=== PATIENT | female | born 1980 | race American Indian/Alaskan Native ===

== ENCOUNTER 2023-09-06 23:30 | Inpatient (IN) | payer MEDICAID, OTHER, SELFPAY ==
[2023-09-06 23:38] VITALS: BP 143/71; PULSE 120; RESP 16; TEMP 37.1; O2SAT 97; BMI 36.6
--- NOTE | 2023-09-06 23:50 | DI.RAD.S_ITS ---
PROCEDURE: XR CHEST 1V INDICATIONS: suspected sepsis TECHNIQUE: One view of the chest was acquired. COMPARISON: None. FINDINGS: Surgical changes and devices: None. Lungs and pleura: Lungs are clear. No pleural effusions or pneumothorax. Mediastinum: Mediastinal contours appear normal. Heart size is normal. Bones and chest wall: No suspicious bony lesions. Overlying soft tissues appear unremarkable. IMPRESSION: No acute cardiopulmonary pathology. Dictated by: Barney Stevenson M.D. on 09/07/2023 at 0:21 Approved by: Barney Stevenson M.D. on 09/07/2023 at 0:21
[2023-09-07] VITALS (22 sets, daily range): BP systolic 104–129; BP diastolic 55–75; PULSE 90–106; RESP 16–24; TEMP 36.1–36.2; O2SAT 94–100; BMI 36.6
[2023-09-07 00:33] LABS: Hematocrit 40.7 % (36-46); Hemoglobin 13.9 g/dL (12.0-16.0); Mean Corpuscular HGB Conc 34.2 % (30-36); Mean Corpuscular Hemoglobin 27.5 PG (26-34); Mean Corpuscular Volume 80.5 fL (80-100); Platelet Count 463 X10^3/uL (150-400); Red Blood Cell Count 5.05 X10^6/uL (4.0-5.2); White Blood Cell Count 29.2 X10^3/uL (4.5-11.0)
[2023-09-07 00:35] LABS: Add Manual Diff / Slide Review YES
[2023-09-07 00:41] LABS: INR 1.3 (0.9-1.3); Prothrombin Time 14.9 SECONDS (9.4-12.5)
[2023-09-07] MEDS: SODIUM CHLORIDE 0.9% 1,000 ML 1000 ML IV (00:43)
[2023-09-07] MEDS: cefTRIAXone 2,000 MG in SODIUM CHLORIDE 0.9% 100 ML 200 MG IV (00:43)
[2023-09-07 00:44] LABS: PTT Partial Thromboplastin Tim 37 SECONDS (25.1-36.5)
[2023-09-07 00:45] LABS: Alanine Aminotransferase 29 IU/L (<35); Albumin 4.1 g/dL (3.5-5.0); Albumin Globulin Ratio 0.9 (1.0-2.8); Alkaline Phosphatase 218 U/L (38-126); Aspartate Aminotransferase 28 IU/L (14-36); BUN Creatinine Ratio 9.4 (6-22); Bilirubin Total 0.7 mg/dL (0.2-1.3); Blood Urea Nitrogen 13 mg/dL (7-17); Carbon Dioxide 23 mmol/L (22-32); Chloride 99 mmol/L (98-107); Estimated Glomerular Filt Rate 48 mL/min (>60); Globulin 4.4 g/dL (1.7-4.1); Glucose 134 mg/dL (70-100); HEMOLYSIS < 15 (0-50); Lipase 46 U/L (23-300); Sodium 131 mmol/L (137-145); Total Protein 8.5 g/dL (6.3-8.2)
[2023-09-07 00:46] LABS: Lactate (Lactic Acid) 1.2 mmol/L (0.7-2.1)
[2023-09-07 01:01] LABS: Procalcitonin 3.01 ng/mL (<0.5)
[2023-09-07 01:13] LABS: Neutrophils Absolute Manual 24528 /uL (3000-5900); Total Cells Counted 100
[2023-09-07 01:14] LABS: Platelet Estimate Increased on smear; RBC Morphology Normal Morphology
--- NOTE | 2023-09-07 01:22 | ED.SKABFB ---
HPI - Skin/Abscess/Foreign Bdy General Chief complaint: Skin/Abscess/Foreign Body Stated complaint: spider bite left leg swollen Time Seen by Provider: 09/07/23 00:37 Source: patient Mode of arrival: Ambulatory Limitations: no limitations History of Present Illness HPI narrative: 42-year-old female with history of opiate use disorder, previously on Suboxone but recently relapsed after the family member presents by private vehicle from home for approximately 5-6 days of gradually worsening left lower leg redness and pain. Patient states that she felt like she was bit by something on her outer left leg but brushed it off. Patient noticed some redness to her lower leg the next day, and it spread from her outer left leg all the way up to her knee. Her leg is painful, swollen. Seeing how bad the swelling has gotten she decided to present for evaluation. Last tetanus shot unknown, but she states that she was told that if ?anything happens? she would need a tetanus update. Related Data Home Medications Medication Instructions Recorded Confirmed albuterol sulfate 2.5 mg/3 mL 3 ml INH PRN ##0 11/25/10 (0.083 %) solution for nebulization ACETAMINOPHEN 650 mg PO Q4H ##0 06/29/11 VIT#96/FERROUS FUM/FA 1 tab PO Q DAY ##0 06/29/11 ( Tablet) Allergies Allergy/AdvReac Type Severity Reaction Status Date / Time codeine Allergy Hives Verified 09/06/23 23:35 Review of Systems Review of Systems Narrative: Negative except as noted above Patient History Social History Smoking Status: Current some day smoker Smoking Status: Current some day smoker Substance Use Type: opiates Exam Initial Vital Signs Initial Vital Signs: Vital Signs Temperature 98.7 F 09/06/23 23:38 Pulse Rate 120 H 09/06/23 23:38 Respiratory Rate 16 09/06/23 23:38 Blood Pressure 143/71 H 09/06/23 23:38 Pulse Oximetry 97 09/06/23 23:38 Oxygen Delivery Method Room Air 09/06/23 23:38 Const: Awake, alert, no acute distress Cardiac: Tachycardia, regular rhythm RESP: unlabored, clear bilaterally, no wheezing GI: Atraumatic, soft, nontender, nondistended, no rebound, no guarding MSK: Small excoriation outer left lower extremity, compartments soft, full range of motion, 2+ DP pulses bilaterally Skin: Warm, Dry, excoriation lateral left lower extremity. Erythema extending from ankle to just past knee Neuro: AO x3, CN II-XII grossly intact, moves all extremities Course Orders Ordered: ED Orders 09/06/23 23:50 XR chest 1V Stat EKG-12 Lead Stat RT Consult Eval and Treat NOW 09/07/23 02:39 XR tibia fibula LT 2V Stat Discontinued Medications Diphtheria/Tetanus/Acell Pertussis (Tet,Diph,Pertuss(Acell),Vac/Pf 0.5 Ml Syringe) 0.5 ml IM .ONCE ONE Stop: 09/07/23 01:22 Last Admin: 09/07/23 01:26 Dose: 0.5 ml Documented By: KAYLEE Sodium Chloride (Normal Saline 0.9%) 1,000 mls @ 1,000 mls/hr IV BOLUS ONE Stop: 09/07/23 00:48 Last Infusion: 09/07/23 01:43 Dose: Infused Documented By: Admin: 09/07/23 00:43 Dose: 1,000 mls/hr Documented By: JIMI Vancomycin HCl (Vancomycin) 1,000 mg in 200 mls @ 200 mls/hr IV NOW ONE Stop: 09/07/23 00:58 Last Infusion: 09/07/23 02:25 Dose: Infused Documented By: Admin: 09/07/23 01:25 Dose: 200 mls/hr Documented By: KAYLEE Ceftriaxone Sodium 2,000 mg/ (Sodium Chloride) 100 mls @ 200 mls/hr IV NOW ONE Stop: 09/07/23 00:00 Last Infusion: 09/07/23 01:22 Dose: Infused Documented By: Admin: 09/07/23 00:43 Dose: 200 mls/hr Documented By: JIMI Vital Signs Vital signs: Vital Signs - 8 hr 09/06/23 23:38 09/07/23 01:02 09/07/23 01:02 Temperature 98.7 F Pulse Rate 120 H 101 H Respiratory Rate 16 18 Blood Pressure 143/71 H 125/75 Pulse Oximetry 97 98 Oxygen Delivery Method Room Air 09/07/23 01:30 09/07/23 02:00 09/07/23 02:30 Temperature Pulse Rate 97 H 103 H 103 H Respiratory Rate 18 16 Blood Pressure 113/63 Pulse Oximetry 100 100 97 Oxygen Delivery Method Room Air 09/07/23 02:41 09/07/23 02:44 Temperature Pulse Rate 106 H 103 H Respiratory Rate 19 Blood Pressure Pulse Oximetry 98 Oxygen Delivery Method MDM - Skin/Abscess/Foreign Bdy Differential Diagnosis Differential diagnosis: Likely abscess of skin or subcutaneous tissue, viral exanthem and dermatophytosis Lab Data 09/06/23 00:15 09/06/23 00:15 Labs: Lab Results 09/06/23 Range/Units 00:15 WBC 29.2 H (4.5-11.0) X10^3/uL RBC 5.05 (4.0-5.2) X10^6/uL Hgb 13.9 (12.0-16.0) g/dL Hct 40.7 (36-46) % MCV 80.5 (80-100) fL MCH 27.5 (26-34) PG MCHC 34.2 (30-36) % RDW 15.0 H (11.6-14.8) % Plt Count 463 H (150-400) X10^3/uL Neut % (Auto) Not Reportable Lymph % (Auto) Not Reportable [place] % (Auto) Not Reportable Eos % (Auto) Not Reportable Baso % (Auto) Not Reportable Lymph # (Auto) Not Reportable [place] # (Auto) Not Reportable Baso # (Auto) Not Reportable Total Counted 100 Seg Neutrophils % 74.0 H (38-70) % Band Neutrophils % 10.0 H (3-7) % Lymphocytes % (Manual) 13.0 L (25-45) % Monocytes % (Manual) 2.0 (2-11) % Eosinophils % (Manual) 1.0 L (2-4) % Neutrophils # (Manual) 57568 H (2771-2529) /uL Platelet Estimate Increased on smear RBC Morphology Normal morphology PT 14.9 H (9.4-12.5) SECONDS INR 1.3 (0.9-1.3) APTT 37 H (25.1-36.5) SECONDS Sodium 131 L (137-145) mmol/L Potassium 3.0 L (3.4-5.1) mmol/L Chloride 99 (98-107) mmol/L Carbon Dioxide 23 (22-32) mmol/L BUN 13 (7-17) mg/dL Creatinine 1.39 H (0.52-1.04) mg/dL Estimated GFR 48 L (>60) mL/min BUN/Creatinine Ratio 9.4 (6-22) Glucose 134 H (70-100) mg/dL Lactate 1.2 (0.7-2.1) mmol/L Calcium 9.0 (8.4-10.2) mg/dL Total Bilirubin 0.7 (0.2-1.3) mg/dL AST 28 (14-36) IU/L ALT 29 (<35) IU/L Alkaline Phosphatase 218 H (38-126) U/L Total Protein 8.5 H (6.3-8.2) g/dL Albumin 4.1 (3.5-5.0) g/dL Globulin 4.4 H (1.7-4.1) g/dL Albumin/Globulin Ratio 0.9 L (1.0-2.8) Lipase 46 (23-300) U/L Procalcitonin 3.01 H (<0.5) ng/mL Point of Care Testing Test Results Negative Urine Dip Bedside Urine Glucose Negative Bedside Urine Bilirubin + 1 Bedside Urine Ketone +/- 5 Urine Specific [place] 1.03 Bedside Urine Occult Blood +/- Bedside Urine pH 5.5 Bedside Urine Protein + 30 Bedside Urine Urobilinogen - Negative Bedside Urine Nitrite - Negative Bedside Urine Leukocytes +/- 15 Esterase MDM Narrative Medical decision making narrative: Extensive cellulitis of left lower extremity presumably after insect bite. Compartments are soft, there is no crepitus, however based on the extent as well as duration of symptoms as well as abnormal vital signs concerns for sepsis. Blood cultures ordered, vancomycin and Rocephin ordered for coverage. Laboratory work is reviewed. Significant for WBC count 29, sodium 131, potassium 3.0, creatinine 1.39, procalcitonin 3.01. No previous lab results for comparison. X-ray of tibia and fibula shows no gas, but extensive soft tissue swelling is appreciable on x-ray. Based on the extent of cellulitis plan to admit patient for IV antibiotics and further treatment. Discharge Plan Departure Patient Disposition: Admitted As Inpatient Clinical Impression: Use of nonprescription opiate drugs Cellulitis Qualifiers: Site of cellulitis: extremity Site of cellulitis of extremity: lower extremity Laterality: left Qualified Code(s): L03.116 - Cellulitis of left lower limb Admit Date/Time: 09/07/23 02:55 Admit Provider: Remi Sanchez
[2023-09-07] MEDS: VANCOMYCIN 1,000 MG/200 ML PIGGYBACK 200 MG IV (01:25)
[2023-09-07] MEDS: TET,DIPH,PERTUSS(ACELL),VAC/PF 0.5 ML SYRINGE IM (01:26)
--- NOTE | 2023-09-07 02:39 | DI.RAD.S_ITS ---
PROCEDURE: XR TIBIA FIBULA LT 2V INDICATIONS: LLE CELLULITIS/SWELLING TECHNIQUE: 2 views of the tibia and fibula were acquired. COMPARISON: None. FINDINGS: Bones: No acute fractures or dislocations. No suspicious bony lesions. Soft tissues: Nonspecific soft tissue edema is seen throughout the lower leg. IMPRESSION: Nonspecific soft tissue edema. No acute osseous abnormality. If there is continued clinical concern or persistent symptoms, repeat radiographs or cross-sectional imaging (e.g. CT, MRI) may be helpful for further evaluation. There is no significant discrepancy when compared to the overnight preliminary report. Approved by: Tomás Starr M.D. on 09/07/2023 at 7:43
--- NOTE | 2023-09-07 06:12 | DI.US.S_ITS ---
PROCEDURE: US PERIPH VENOUS LOW EXTREM BI INDICATIONS: PAIN AND EDEMA TECHNIQUE: Real-time imaging, as well as color and pulse Doppler interrogation, were performed of the deep veins of both legs from the inguinal ligament to the popliteal fossa, with documentation of the visualized calf veins. COMPARISON: None. FINDINGS: Right: The common femoral, femoral, popliteal, and the visualized calf veins are normally compressible, and free of intraluminal thrombus. Color and pulse Doppler demonstrate normal phasic intravascular flow. There is normal augmentation response to distal compression maneuver. Left: The common femoral, femoral, popliteal, and the visualized calf veins are normally compressible, and free of intraluminal thrombus. Color and pulse Doppler demonstrate normal phasic intravascular flow. There is normal augmentation response to distal compression maneuver. IMPRESSION: No findings of deep venous thrombosis in either lower extremity. Dictated by: Keri Pate M.D. on 09/07/2023 at 8:03 Approved by: Keri Pate M.D. on 09/07/2023 at 8:03
--- NOTE | 2023-09-07 06:13 | ED.SKABFB ---
HPI - Skin/Abscess/Foreign Bdy General Chief complaint: Skin/Abscess/Foreign Body Stated complaint: spider bite left leg swollen Time Seen by Provider: 09/07/23 00:37 Source: patient Mode of arrival: Ambulatory Limitations: no limitations History of Present Illness HPI narrative: 42 years old female with apparent no medical issues and not seen a physician and currently not on prescription medications but on Percocet that is being procured without a prescription presents to the emergency room for worsening pain redness and swelling of the left lower extremity that started about 5 to 6 days ago. Reports that she may have felt bite-like sensation but could not find any insects while at home and rested off few days ago. Started off as a small red blister in the calf on the left leg that spread to the leg up to the knee and to the ankle. No recent trauma and does not work outside/inadvertent exposure or scrapes to the skin. No pets at home. Does have eczema and may also have scratched her legs unknowingly. Now developed significant pain with erythema extending to most of the leg on the left side. Noted to be tachycardic in the emergency room and labs revealed a white count of 29.2. Hemoglobin of 13.9, potassium of 6.0 with a creatinine of 1.39. Patient was initiated on IV Rocephin/vancomycin for likely cellulitis of the left lower extremity and admitted for further evaluation Related Data Allergies Allergy/AdvReac Type Severity Reaction Status Date / Time codeine Allergy Hives Verified 09/06/23 23:35 Review of Systems Review of Systems Narrative: A 12 point review of system is negative unless otherwise stated in history of present illness Patient History Social History Smoking Status: Current some day smoker Smoking Status: Current some day smoker Substance Use Type: opiates Exam Initial Vital Signs Initial Vital Signs: Vital Signs Temperature 98.7 F 09/06/23 23:38 Pulse Rate 120 H 09/06/23 23:38 Respiratory Rate 16 09/06/23 23:38 Blood Pressure 143/71 H 09/06/23 23:38 Pulse Oximetry 97 09/06/23 23:38 Oxygen Delivery Method Room Air 09/06/23 23:38 Const Other: Diffuse erythema with edema extending from the ankle to the mid [place] with significant edema. Tenderness noted Air entry equal bilaterally no wheezes no crackles S1-S2 heard no S3 Course Orders Ordered: ED Orders 09/06/23 23:50 XR chest 1V Stat EKG-12 Lead Stat RT Consult Eval and Treat NOW 09/07/23 02:39 XR tibia fibula LT 2V Stat Clonidine HCl (Clonidine 0.1 Mg Tablet) 0.1 mg PO DAILY ADOLFO Enoxaparin Sodium (Enoxaparin 40 Mg/0.4 Ml Syringe) 40 mg SUBCUT DAILY [facility] Morphine Sulfate (Morphine 4 Mg/Ml Inj) 3 mg IV Q2HR ADOLFO Naloxone HCl (Naloxone 0.4 Mg/Ml Vial) 0.2 mg IV Q2MIN PRN PRN Reason: Opiate Reversal Vancomycin HCl (Vancomycin Per Pharmacy) 1 request MISC NOW [facility] Discontinued Medications Diphtheria/Tetanus/Acell Pertussis (Tet,Diph,Pertuss(Acell),Vac/Pf 0.5 Ml Syringe) 0.5 ml IM .ONCE ONE Stop: 09/07/23 01:22 Last Admin: 09/07/23 01:26 Dose: 0.5 ml Documented By: KAYLEE Sodium Chloride (Normal Saline 0.9%) 1,000 mls @ 1,000 mls/hr IV BOLUS ONE Stop: 09/07/23 00:48 Last Infusion: 09/07/23 01:43 Dose: Infused Documented By: Admin: 09/07/23 00:43 Dose: 1,000 mls/hr Documented By: JIMI Vancomycin HCl (Vancomycin) 1,000 mg in 200 mls @ 200 mls/hr IV NOW ONE Stop: 09/07/23 00:58 Last Infusion: 09/07/23 02:25 Dose: Infused Documented By: Admin: 09/07/23 01:25 Dose: 200 mls/hr Documented By: KAYLEE Ceftriaxone Sodium 2,000 mg/ (Sodium Chloride) 100 mls @ 200 mls/hr IV NOW ONE Stop: 09/07/23 00:00 Last Infusion: 09/07/23 01:22 Dose: Infused Documented By: Admin: 09/07/23 00:43 Dose: 200 mls/hr Documented By: JIMI Reevaluation(s) Reevaluation #1: 42 years old female with apparent no medical issues and not seen a physician and currently not on prescription medications but on Percocet that is being procured without a prescription presents to the emergency room for worsening pain redness and swelling of the left lower extremity that started about 5 to 6 days ago. Reports that she may have felt bite-like sensation but could not find any insects while at home and rested off few days ago. Started off as a small red blister in the calf on the left leg that spread to the leg up to the knee and to the ankle. No recent trauma and does not work outside/inadvertent exposure or scrapes to the skin. No pets at home. Does have eczema and may also have scratched her legs unknowingly. Now developed significant pain with erythema extending to most of the leg on the left side. Noted to be tachycardic in the emergency room and labs revealed a white count of 29.2. Hemoglobin of 13.9, potassium of 6.0 with a creatinine of 1.39. Patient was initiated on IV Rocephin/vancomycin for likely cellulitis of the left lower extremity and admitted for further evaluation 1 left lower extremity cellulitis. Could be an insect bite versus scratch from eczema. Does look infected at this time and sent the tissue/secretions for culture if any. X-ray shows soft tissue swelling but no gas at this time. Continue with IV Rocephin/vancomycin initiated in the emergency room pending cultures. Keep the leg elevated and will get a venous Doppler to rule out a DVT 2. Leukocytosis secondary to cellulitis as above with IV antibiotics 3 hypokalemia. Supplemented with p.o. and continue to monitor closely 4. History of prescription drug abuse and also meth use. Denies any marijuana or cocaine or any IV drug abuse. Monitor for withdrawal symptoms. Initiate opiate withdrawal protocol 5 DVT prophylaxis will be with Lovenox CODE STATUS is full Patient will be admitted under inpatient status. Given the leukocytosis with significant infection involving more than 50% of the extremity in the setting of electrolyte imbalance needing IV antibiotics, patient meets criteria for inpatient with expected length of stay greater than 2 midnights Patient was evaluated with a video communication device. Location of the provider is [facility]. Time spent is 20 minutes Vital Signs Vital signs: Vital Signs - 8 hr 09/06/23 23:38 09/07/23 01:02 09/07/23 01:02 Temperature 98.7 F Pulse Rate 120 H 101 H Respiratory Rate 16 18 Blood Pressure 143/71 H 125/75 Pulse Oximetry 97 98 Oxygen Delivery Method Room Air 09/07/23 01:30 09/07/23 02:00 09/07/23 02:30 Temperature Pulse Rate 97 H 103 H 103 H Respiratory Rate 18 16 Blood Pressure 113/63 Pulse Oximetry 100 100 97 Oxygen Delivery Method Room Air 09/07/23 02:41 09/07/23 02:44 Temperature Pulse Rate 106 H 103 H Respiratory Rate 19 Blood Pressure Pulse Oximetry 98 Oxygen Delivery Method MDM - Skin/Abscess/Foreign Bdy Lab Data 09/06/23 00:15 09/06/23 00:15 Labs: Lab Results 09/06/23 Range/Units 00:15 WBC 29.2 H (4.5-11.0) X10^3/uL RBC 5.05 (4.0-5.2) X10^6/uL Hgb 13.9 (12.0-16.0) g/dL Hct 40.7 (36-46) % MCV 80.5 (80-100) fL MCH 27.5 (26-34) PG MCHC 34.2 (30-36) % RDW 15.0 H (11.6-14.8) % Plt Count 463 H (150-400) X10^3/uL Neut % (Auto) Not Reportable Lymph % (Auto) Not Reportable [place] % (Auto) Not Reportable Eos % (Auto) Not Reportable Baso % (Auto) Not Reportable Lymph # (Auto) Not Reportable [place] # (Auto) Not Reportable Baso # (Auto) Not Reportable Total Counted 100 Seg Neutrophils % 74.0 H (38-70) % Band Neutrophils % 10.0 H (3-7) % Lymphocytes % (Manual) 13.0 L (25-45) % Monocytes % (Manual) 2.0 (2-11) % Eosinophils % (Manual) 1.0 L (2-4) % Neutrophils # (Manual) 10343 H (1033-8321) /uL Platelet Estimate Increased on smear RBC Morphology Normal morphology PT 14.9 H (9.4-12.5) SECONDS INR 1.3 (0.9-1.3) APTT 37 H (25.1-36.5) SECONDS Sodium 131 L (137-145) mmol/L Potassium 3.0 L (3.4-5.1) mmol/L Chloride 99 (98-107) mmol/L Carbon Dioxide 23 (22-32) mmol/L BUN 13 (7-17) mg/dL Creatinine 1.39 H (0.52-1.04) mg/dL Estimated GFR 48 L (>60) mL/min BUN/Creatinine Ratio 9.4 (6-22) Glucose 134 H (70-100) mg/dL Lactate 1.2 (0.7-2.1) mmol/L Calcium 9.0 (8.4-10.2) mg/dL Total Bilirubin 0.7 (0.2-1.3) mg/dL AST 28 (14-36) IU/L ALT 29 (<35) IU/L Alkaline Phosphatase 218 H (38-126) U/L Total Protein 8.5 H (6.3-8.2) g/dL Albumin 4.1 (3.5-5.0) g/dL Globulin 4.4 H (1.7-4.1) g/dL Albumin/Globulin Ratio 0.9 L (1.0-2.8) Lipase 46 (23-300) U/L Procalcitonin 3.01 H (<0.5) ng/mL Point of Care Testing Test Results Negative Urine Dip Bedside Urine Glucose Negative Bedside Urine Bilirubin + 1 Bedside Urine Ketone +/- 5 Urine Specific [place] 1.03 Bedside Urine Occult Blood +/- Bedside Urine pH 5.5 Bedside Urine Protein + 30 Bedside Urine Urobilinogen - Negative Bedside Urine Nitrite - Negative Bedside Urine Leukocytes +/- 15 Esterase Discharge Plan Departure Patient Disposition: Admitted As Inpatient Clinical Impression: Use of nonprescription opiate drugs Cellulitis Qualifiers: Site of cellulitis: extremity Site of cellulitis of extremity: lower extremity Laterality: left Qualified Code(s): L03.116 - Cellulitis of left lower limb
--- NOTE | 2023-09-07 06:17 | P.HP_ITS ---
History of Present Illness History of Present Illness Date Patient Seen: 09/07/23 Time Patient Seen: 05:45 Chief complaint: spider bite left leg swollen Narrative: 42 years old female with apparent no medical issues and not seen a physician and currently not on prescription medications but on Percocet that is being procured without a prescription presents to the emergency room for worsening pain redness and swelling of the left lower extremity that started about 5 to 6 days ago. Reports that she may have felt bite-like sensation but could not find any insects while at home and rested off few days ago. Started off as a small red blister in the calf on the left leg that spread to the leg up to the knee and to the ankle. No recent trauma and does not work outside/inadvertent exposure or scrapes to the skin. No pets at home. Does have eczema and may also have scratched her legs unknowingly. Now developed significant pain with erythema extending to most of the leg on the left side. Noted to be tachycardic in the emergency room and labs revealed a white count of 29.2. Hemoglobin of 13.9, potassium of 6.0 with a creatinine of 1.39. Patient was initiated on IV Rocephin/vancomycin for likely cellulitis of the left lower extremity and admitted for further evaluation [facility] Social History Smoking Status: Current some day smoker Meds Home Medications and Allergies Allergies Allergy/AdvReac Type Severity Reaction Status Date / Time codeine Allergy Hives Verified 09/06/23 23:35 Review of Systems Review of Systems Narrative: A 12 point review of system is negative unless otherwise stated in the history of intolerance Exam Vital Signs (past 8 hours): - 09/06/23 23:38 09/07/23 01:02 09/07/23 01:02 Temperature 98.7 F Pulse Rate 120 H 101 H Respiratory Rate 16 18 Blood Pressure 143/71 H 125/75 Pulse Oximetry 97 98 Oxygen Delivery Method Room Air 09/07/23 01:30 09/07/23 02:00 09/07/23 02:30 Temperature Pulse Rate 97 H 103 H 103 H Respiratory Rate 18 16 Blood Pressure 113/63 Pulse Oximetry 100 100 97 Oxygen Delivery Method Room Air 09/07/23 02:41 09/07/23 02:44 09/07/23 03:00 Temperature Pulse Rate 106 H 103 H 99 H Respiratory Rate 19 22 Blood Pressure Pulse Oximetry 98 98 Oxygen Delivery Method 09/07/23 03:00 09/07/23 03:30 09/07/23 04:00 Temperature Pulse Rate 99 H 97 H Respiratory Rate 23 21 Blood Pressure 116/65 Pulse Oximetry 97 95 Oxygen Delivery Method 09/07/23 04:00 09/07/23 04:30 09/07/23 05:00 Temperature Pulse Rate 96 H 98 H Respiratory Rate 20 23 Blood Pressure 119/67 Pulse Oximetry 94 97 Oxygen Delivery Method 09/07/23 05:00 09/07/23 05:30 Temperature Pulse Rate 101 H Respiratory Rate 22 Blood Pressure 118/55 L Pulse Oximetry 97 Oxygen Delivery Method Oxygen Delivery Method Room Air Narrative Exam Narrative: Diffuse erythema with edema extending from the ankle to the mid burdick with significant edema. Tenderness noted Air entry equal bilaterally no wheezes no crackles S1-S2 heard no S3 Objective Labs 09/06/23 00:15 09/06/23 00:15 Labs: Laboratory Results - last 24 hr 09/06/23 00:15 WBC 29.2 H RBC 5.05 Hgb 13.9 Hct 40.7 MCV 80.5 MCH 27.5 MCHC 34.2 RDW 15.0 H Plt Count 463 H Neut % (Auto) Not Reportable Lymph % (Auto) Not Reportable Turner % (Auto) Not Reportable Eos % (Auto) Not Reportable Baso % (Auto) Not Reportable Lymph # (Auto) Not Reportable Turner # (Auto) Not Reportable Baso # (Auto) Not Reportable Total Counted 100 Seg Neutrophils % 74.0 H Band Neutrophils % 10.0 H Lymphocytes % (Manual) 13.0 L Monocytes % (Manual) 2.0 Eosinophils % (Manual) 1.0 L Neutrophils # (Manual) 09720 H Platelet Estimate Increased on smear RBC Morphology Normal morphology PT 14.9 H INR 1.3 APTT 37 H Sodium 131 L Potassium 3.0 L Chloride 99 Carbon Dioxide 23 BUN 13 Creatinine 1.39 H Estimated GFR 48 L BUN/Creatinine Ratio 9.4 Glucose 134 H Lactate 1.2 Calcium 9.0 Total Bilirubin 0.7 AST 28 ALT 29 Alkaline Phosphatase 218 H Total Protein 8.5 H Albumin 4.1 Globulin 4.4 H Albumin/Globulin Ratio 0.9 L Lipase 46 Procalcitonin 3.01 H Assessment & Plan Assessment & Plan narrative: 42 years old female with apparent no medical issues and not seen a physician and currently not on prescription medications but on Percocet that is being procured without a prescription presents to the emergency room for worsening pain redness and swelling of the left lower extremity that started about 5 to 6 days ago. Reports that she may have felt bite-like sensation but could not find any insects while at home and rested off few days ago. Started off as a small red blister in the calf on the left leg that spread to the leg up to the knee and to the ankle. No recent trauma and does not work outside/inadvertent exposure or scrapes to the skin. No pets at home. Does have eczema and may also have scratched her legs unknowingly. Now developed significant pain with erythema extending to most of the leg on the left side. Noted to be tachycardic in the emergency room and labs revealed a white count of 29.2. Hemoglobin of 13.9, potassium of 6.0 with a creatinine of 1.39. Patient was initiated on IV Rocephin/vancomycin for likely cellulitis of the left lower extremity and admitted for further evaluation 1 left lower extremity cellulitis. Could be an insect bite versus scratch from eczema. Does look infected at this time and sent the tissue/secretions for culture if any. X-ray shows soft tissue swelling but no gas at this time. Continue with IV Rocephin/vancomycin initiated in the emergency room pending cultures. Keep the leg elevated and will get a venous Doppler to rule out a DVT 2. Leukocytosis secondary to cellulitis as above with IV antibiotics 3 hypokalemia. Supplemented with p.o. and continue to monitor closely 4. History of prescription drug abuse and also meth use. Denies any marijuana or cocaine or any IV drug abuse. Monitor for withdrawal symptoms. Initiate opiate withdrawal protocol 5 DVT prophylaxis will be with Lovenox CODE STATUS is full Patient will be admitted under inpatient status. Given the leukocytosis with significant infection involving more than 50% of the extremity in the setting of electrolyte imbalance needing IV antibiotics, patient meets criteria for inpatient with expected length of stay greater than 2 midnights Patient was evaluated with a video communication device. Location of the provider is [facility]. Time spent is 20 minutes
--- NOTE | 2023-09-07 07:18 | P.HP_ITS ---
History of Present Illness History of Present Illness Date Patient Seen: 09/07/23 Chief complaint: spider bite left leg swollen Narrative: From night doctor: 42 year old female with apparent no medical issues and not seen a physician and currently not on prescription medications but on Percocet that is being procured without a prescription presents to the emergency room for worsening pain redness and swelling of the left lower extremity that started about 5 to 6 days ago. Reports that she may have felt bite-like sensation but could not find any insects while at home and rested off few days ago. Started off as a small red blister in the calf on the left leg that spread to the leg up to the knee and to the ankle. No recent trauma and does not work outside/inadvertent exposure or scrapes to the skin. No pets at home. Does have eczema and may also have scratched her legs unknowingly. Now developed significant pain with erythema extending to most of the leg on the left side. Noted to be tachycardic in the emergency room and labs revealed a white count of 29.2. Hemoglobin of 13.9, potassium of 6.0 with a creatinine of 1.39. Patient was initiated on IV Rocephin/vancomycin for likely cellulitis of the left lower extremity and admitted for further evaluation Additional history: Symptoms began last Sunday. She has had intermittent vomiting with leg swelling, pain and redness. She has also had some degree of fevers. She wondered about a bug bite as she had some kind of pinch but did not see anything in particular. She denies any other trauma to the leg. She has no history of leg cellulitis or MRSA. The right leg is unremarkable and she has no history of edema. She does have opiate dependency using Percocet 30 mg tabs 10-12 a day. She had previously been on a maintenance program but is currently not. She denies any injection drug use. She denies current symptoms withdrawal as she was given some opiates in the emergency department. [facility] Social History household members: significant other and family Smoking Status: Current some day smoker alcohol intake: never Meds Home Medications and Allergies Allergies Allergy/AdvReac Type Severity Reaction Status Date / Time codeine Allergy Hives Verified 09/06/23 23:35 Review of Systems Review of Systems Narrative: All else reviewed and otherwise unremarkable except as noted in the history and physical. Exam Vital Signs (past 8 hours): - 09/06/23 23:38 09/07/23 01:02 09/07/23 01:02 Temperature 98.7 F Pulse Rate 120 H 101 H Respiratory Rate 16 18 Blood Pressure 143/71 H 125/75 Blood Pressure [Right Arm] Pulse Oximetry 97 98 Oxygen Delivery Method Room Air 09/07/23 01:30 09/07/23 02:00 09/07/23 02:30 Temperature Pulse Rate 97 H 103 H 103 H Respiratory Rate 18 16 Blood Pressure 113/63 Blood Pressure [Right Arm] Pulse Oximetry 100 100 97 Oxygen Delivery Method Room Air 09/07/23 02:41 09/07/23 02:44 09/07/23 03:00 Temperature Pulse Rate 106 H 103 H 99 H Respiratory Rate 19 22 Blood Pressure Blood Pressure [Right Arm] Pulse Oximetry 98 98 Oxygen Delivery Method 09/07/23 03:00 09/07/23 03:30 09/07/23 04:00 Temperature Pulse Rate 99 H 97 H Respiratory Rate 23 21 Blood Pressure 116/65 Blood Pressure [Right Arm] Pulse Oximetry 97 95 Oxygen Delivery Method 09/07/23 04:00 09/07/23 04:30 09/07/23 05:00 Temperature Pulse Rate 96 H 98 H Respiratory Rate 20 23 Blood Pressure 119/67 Blood Pressure [Right Arm] Pulse Oximetry 94 97 Oxygen Delivery Method 09/07/23 05:00 09/07/23 05:30 09/07/23 06:00 Temperature Pulse Rate 101 H 98 H Respiratory Rate 22 22 Blood Pressure 118/55 L Blood Pressure [Right Arm] Pulse Oximetry 97 98 Oxygen Delivery Method 09/07/23 06:00 09/07/23 06:05 09/07/23 06:30 Temperature Pulse Rate 99 H 100 H Respiratory Rate 16 24 Blood Pressure 113/64 Blood Pressure [Right Arm] 113/64 Pulse Oximetry 99 99 Oxygen Delivery Method Room Air 09/07/23 07:00 09/07/23 07:00 Temperature Pulse Rate 100 H Respiratory Rate 20 Blood Pressure 129/60 Blood Pressure [Right Arm] Pulse Oximetry 97 Oxygen Delivery Method Oxygen Delivery Method Room Air Narrative Exam Narrative: NAD, alert and oriented, fluent speech, calm. Normocephalic skull, EOMI, anicteric sclera, symmetric pupils. Oropharynx unremarkable, no droop. Neck supple, midline trachea, no adenopathy. Lungs clear, normal rate and effort. Heart regular, no murmur gallop or rub. Abdomen is soft, non distended and non tender. Extremities: The left leg is boggy and swollen from below the knee to the ankle. It is slightly purple to red and warm. There are 2 areas of blistering. There is no obvious area of fluctuance. Skin is free of rash or lesions. Joints are not swollen or deformed. Judgment appears to be normal. Objective Imaging Chest x-ray: Radiologist's impression: No acute findings. Leg x ray: Radiologist's impression: Nonspecific soft tissue edema. No acute osseous abnormality. If there is continued clinical concern or persistent symptoms, repeat radiographs or cross-sectional imaging (e.g. CT, MRI) may be helpful for further evaluation. Venous US: Radiologist's impression: No findings of deep venous thrombosis in either lower extremity. Labs 09/06/23 00:15 09/06/23 00:15 Labs: Laboratory Results - last 24 hr 09/06/23 00:15 WBC 29.2 H RBC 5.05 Hgb 13.9 Hct 40.7 MCV 80.5 MCH 27.5 MCHC 34.2 RDW 15.0 H Plt Count 463 H Neut % (Auto) Not Reportable Lymph % (Auto) Not Reportable Power % (Auto) Not Reportable Eos % (Auto) Not Reportable Baso % (Auto) Not Reportable Lymph # (Auto) Not Reportable Power # (Auto) Not Reportable Baso # (Auto) Not Reportable Total Counted 100 Seg Neutrophils % 74.0 H Band Neutrophils % 10.0 H Lymphocytes % (Manual) 13.0 L Monocytes % (Manual) 2.0 Eosinophils % (Manual) 1.0 L Neutrophils # (Manual) 00997 H Platelet Estimate Increased on smear RBC Morphology Normal morphology PT 14.9 H INR 1.3 APTT 37 H Sodium 131 L Potassium 3.0 L Chloride 99 Carbon Dioxide 23 BUN 13 Creatinine 1.39 H Estimated GFR 48 L BUN/Creatinine Ratio 9.4 Glucose 134 H Lactate 1.2 Calcium 9.0 Total Bilirubin 0.7 AST 28 ALT 29 Alkaline Phosphatase 218 H Total Protein 8.5 H Albumin 4.1 Globulin 4.4 H Albumin/Globulin Ratio 0.9 L Lipase 46 Procalcitonin 3.01 H Assessment & Plan Assessment & Plan narrative: 1. Left lower extremity cellulitis. Present on admission and active. -X-ray shows soft tissue swelling but no gas at this time. Continue with IV Rocephin/vancomycin initiated in the emergency room pending cultures. Keep the leg elevated and will get a venous Doppler to rule out a DVT 2. Severe Leukocytosis secondary to cellulitis. Present on admission and active. 3. Hypokalemia. Present on admission and active. -Supplemented with p.o. and continue to monitor closely -Monitor and replace as needed, 4. History of prescription drug abuse and also meth use. Present on admission and active. -Denies any marijuana or cocaine or any IV drug abuse. Monitor for withdrawal symptoms. Initiate opiate withdrawal protocol. -will put her on methadone 10 TID for during the hospital. She is thinking about re entering a Suboxone program in the near future. DVT prophylaxis will be with Lovenox CODE STATUS is full Patient will be admitted under inpatient status. Given the leukocytosis with significant infection involving more than 50% of the extremity in the setting of electrolyte imbalance needing IV antibiotics, patient meets criteria for inpatient with expected length of stay greater than 2 midnights Time Spent With Patient Time with patient: 30 to 49 minutes with 50% spent counseling/coordinating care Quality MIPS - Admit I confirm the patient?s Advance Care Plan is present, Code status is documented, Surrogate decision maker is in patient?s record [If Yes, STOP here]: Yes MIPS - Meds 'Current medications' to include all prescriptions, [id number] products, herbals, cannabis/cannabidiol products, and vitamin/mineral/dietary (nutritional) supplements. I have utilized all available resources to obtain, update, or review the patient?s current medications. [If Yes, STOP here]: Yes
[2023-09-07] MEDS: cloNIDine 0.1 MG TABLET PO (08:06)
[2023-09-07] MEDS: ENOXAPARIN 40 MG/0.4 ML SYRINGE SUBCUT (08:07)
[2023-09-07] MEDS: POTASSIUM CHLORIDE 20 MEQ TAB 40 MEQ PO ×2 (08:07→12:09)
--- NOTE | 2023-09-07 08:27 | PC.NURSE ---
Pt ambulated to bathroom with walker. Significant pain on ambulation. Pt declined morphine due to past hx of substance abuse. Pt's left lower extremity edemetous & red and pt states that it is very itchy. A&Ox4.
[2023-09-07] MEDS: MORPHINE 4 MG/ML INJ 3 MG IV ×3 (11:29→21:28)
[2023-09-07 13:01] LABS: Vancomycin Trough < 5.0 ug/mL (10-20)
[2023-09-07] MEDS: METHADONE 10 MG TABLET 5 MG PO ×2 (14:59→21:31)
[2023-09-07] MEDS: VANCOMYCIN 750 MG/150 ML PIGGYBACK 150 MG IV (14:59)
[2023-09-07 17:58] LABS: BUN Creatinine Ratio 9.1 (6-22); Blood Urea Nitrogen 3 mg/dL (7-17); Carbon Dioxide 16 mmol/L (22-32); Chloride 116 mmol/L (98-107); Estimated Glomerular Filt Rate > 60 mL/min (>60); Glucose 84 mg/dL (70-100); Potassium 3.3 mmol/L (3.4-5.1); Sodium 136 mmol/L (137-145)
[2023-09-07 18:07] LABS: HEMOLYSIS 39 (0-50)
[2023-09-07 18:21] LABS: Calcium 5.6 mg/dL (8.4-10.2)
[2023-09-07] MEDS: CALCIUM GLUCONATE 9.3 MEQ in SODIUM CHLORIDE 0.9% 50 ML 140 MEQ IV (18:55)
[2023-09-07] MEDS: POTASSIUM CHLORIDE IN WATER 10 MEQ/100 ML PIGGYBACK 100 MEQ IV ×3 (20:30→23:42)
[2023-09-08] MEDS: MORPHINE 4 MG/ML INJ 3 MG IV ×5 (00:08→19:56)
[2023-09-08] MEDS: POTASSIUM CHLORIDE IN WATER 10 MEQ/100 ML PIGGYBACK 100 MEQ IV (00:46)
[2023-09-08] MEDS: VANCOMYCIN 750 MG/150 ML PIGGYBACK 150 MG IV (01:52)
[2023-09-08 04:16] LABS: Alanine Aminotransferase 19 IU/L (<35); Albumin 3.2 g/dL (3.5-5.0); Albumin Globulin Ratio 0.9 (1.0-2.8); Alkaline Phosphatase 147 U/L (38-126); Aspartate Aminotransferase 17 IU/L (14-36); BUN Creatinine Ratio 6.7 (6-22); Bilirubin Total 0.4 mg/dL (0.2-1.3); Blood Urea Nitrogen 3 mg/dL (7-17); Carbon Dioxide 25 mmol/L (22-32); Chloride 105 mmol/L (98-107); Estimated Glomerular Filt Rate > 60 mL/min (>60); Globulin 3.7 g/dL (1.7-4.1); Glucose 169 mg/dL (70-100); HEMOLYSIS < 15 (0-50); Potassium 3.1 mmol/L (3.4-5.1); Sodium 133 mmol/L (137-145); Total Protein 6.9 g/dL (6.3-8.2)
[2023-09-08 04:27] VITALS: BP 116/68; PULSE 104; RESP 18; TEMP 36.3; O2SAT 96
[2023-09-08] MEDS: METHADONE 10 MG TABLET 5 MG PO ×3 (05:44→21:36)
[2023-09-08 08:00] VITALS: BP 99/64; PULSE 100; RESP 18; TEMP 36.3; O2SAT 97
[2023-09-08 08:13] VITALS: BP 112/65; PULSE 91
[2023-09-08] MEDS: cloNIDine 0.1 MG TABLET PO (08:13)
[2023-09-08] MEDS: ENOXAPARIN 40 MG/0.4 ML SYRINGE SUBCUT (08:13)
[2023-09-08] MEDS: POTASSIUM CHLORIDE 20 MEQ TAB 40 MEQ PO ×2 (08:46→13:00)
[2023-09-08 12:53] LABS: Magnesium 1.8 mg/dL (1.6-2.3)
[2023-09-08] MEDS: VANCOMYCIN 1,250 MG/250 ML PIGGYBACK 166.667 MG IV ×2 (12:55→21:17)
[2023-09-08 14:28] LABS: Add Manual Diff / Slide Review NO; Basophils Absolute Auto 100 /uL (0-100); Basophils Percent Auto 0.8 % (0-2); Eosinophils Absolute Auto 300 /uL (0-450); Eosinophils Percent Auto 1.5 % (2-4); Hematocrit 36.6 % (36-46); Hemoglobin 12.4 g/dL (12.0-16.0); Lymphocytes Absolute Auto 2300 /uL (1100-4500); Lymphocytes Percent Auto 13.4 % (25-40); Mean Corpuscular HGB Conc 33.8 % (30-36); Mean Corpuscular Volume 82.9 fL (80-100); Monocytes Absolute Auto 1100 /uL (0-900); Monocytes Percent Auto 6.4 % (3-14); Neutrophils Absolute Auto 13400 /uL (1500-7000); Neutrophils Percent Auto 77.9 % (50-75); Platelet Count 534 X10^3/uL (150-400); Red Blood Cell Count 4.42 X10^6/uL (4.0-5.2); Red Cell Distribution Width 15.1 % (11.6-14.8); White Blood Cell Count 17.2 X10^3/uL (4.5-11.0)
[2023-09-08 15:35] LABS: Hemoglobin A1C% w Est Avg Glu 5.3 % (4.0-6.0)
--- NOTE | 2023-09-08 15:50 | CM.DANOTE ---
DCP Assessment Note pt is a 42yo F here following cellulitis/spider bite of left leg. PMH of prescription opiate drug abuse and meth use. [facility] TECHNICAL DEVELOPER reviewed EMR. Per RN, ambulating indep but it is painful, using walker in room. Per hospitalist, labs pending and may dc either tomorrow or next day. Getting IV abx at this time. No PT/OT orders at this time. Per RN, pt's swelling is reduced today compared to yesterday. TECHNICAL DEVELOPER entered room and introduced self and role. Pt resting in chair. Pt lives with family in [place]. Pt is normally indep with ADLs/mobilizes without DME. Pt reports she's interested in potentially moving in with friend to help with her sobriety. Pt reports she knows where to go for suboxone clinic as she has done it before. Pt reports she had a slip up but overall wants to remain sober. Very motivated and knowledgeable about seeking help, denies drug use resources from this TECHNICAL DEVELOPER at this time. Pt normally gets rides from friends or family. Pt's emergency contact is felton Barrientos ([phone]). Pt reports she has a friend that can take her home. Pt reports interested in walker from hospital at dc if she's still struggling to ambulate. Does not believe she can borrow one from friend or family. Will wait to see how she's ambulating at dc. Reports being unsure if she has medicaid transport benefits, reports she likely won't need it to dc from this hospital. Denies other CM needs. Plan: anticipate dc home with friend to transport when stable- within next day or two. f/u if walker needed at dc if still painful to ambulate/pt not at baseline. CM team will continue to follow as needed. POPPY Duran Discharge Planning/Care Management CM Discharge Assessment Start: 09/08/23 15:49 Freq: Status: Active Protocol: Document 09/08/23 15:49 BRIANA (Rec: 09/08/23 15:50 [id number]) Discharge Planning Assessment Assigned Marketing Planner POPPY Doshi Advance Directives? No History Provided By Patient Prior Living Arrangements House Household Members significant other,family Type of transporation used prior to Relies on Others admit Comment family or friends transport or walks if local Independent with ADL's Yes Is patient alert and oriented? Yes Barriers to Discharge No Discharge Plan Home Transportation Arrangement friend in POV Referrals Initiated None needed Whiteboard Updated in Patient Room with Yes name and ext. # of Marketing Planner Review Status In Process Next Review Type Continued Stay Review
[2023-09-08 16:00] VITALS: BP 105/45; PULSE 94; RESP 18; TEMP 36.1; O2SAT 98
--- NOTE | 2023-09-08 19:22 | P.PN_ITS ---
Subjective Subjective Interval history: 42-year-old female with known opiate use disorder previously in remission on Suboxone but with recent relapse secondary to of a family member who was admitted with left lower extremity cellulitis. Reports that her leg is doing better today overall. She reports it is less swollen and less painful. She feels the redness is less extreme and the swelling is somewhat improved as well. She has been keeping it elevated as much as possible. She denies any nausea, chest pain, shortness for breath. Exam Vital Signs (past 8 hours): - 09/08/23 16:00 Temperature 97 F L Pulse Rate 94 H Respiratory Rate 18 Blood Pressure 105/45 L Pulse Oximetry 98 Oxygen Flow Rate 0 Oxygen Delivery Method Room Air Oxygen Flow Rate 0 Narrative Exam Narrative: GEN: Adult female, Alert and oriented x 3, NAD HEENT:NC, Face symmetric CHEST: Respiratory excursions symmetric, CTAB CV: RRR, no M/R/G ABD: Soft, NT/ND, BT present in all 4 quadrants, no organomegaly or masses EXTR: warm, well perfused, no C/C; left lower extremity there are small blisters on the proximal aspect of the lateral burdick as well as a drained blister to the posterior calf, leg is mildly warm there are some small wrinkles on the lateral calf which are consistent with reduced swelling, the leg overall is a dusky pink color and remains markedly swollen compared to the right leg SKIN: warm and dry, no rash NEURO: Alert and oriented x 3, nonfocal Objective Labs 09/08/23 14:20 09/08/23 03:45 Labs: Laboratory Results - last 24 hr 09/08/23 09/08/23 03:45 14:20 WBC 17.2 H RBC 4.42 Hgb 12.4 Hct 36.6 MCV 82.9 MCH 28.0 MCHC 33.8 RDW 15.1 H Plt Count 534 H Neut % (Auto) 77.9 H Lymph % (Auto) 13.4 L Sampson % (Auto) 6.4 Eos % (Auto) 1.5 L Baso % (Auto) 0.8 Neut # (Auto) 53820 H Lymph # (Auto) 2300 Sampson # (Auto) 1100 H Eos # (Auto) 300 Baso # (Auto) 100 Sodium 133 L Potassium 3.1 L Chloride 105 Carbon Dioxide 25 BUN 3 L Creatinine 0.45 L Estimated GFR > 60 BUN/Creatinine Ratio 6.7 Glucose 169 H Hemoglobin A1c 5.3 Calcium 8.0 L Magnesium 1.8 Total Bilirubin 0.4 AST 17 ALT 19 Alkaline Phosphatase 147 H Total Protein 6.9 Albumin 3.2 L Globulin 3.7 Albumin/Globulin Ratio 0.9 L [facility] Social History household members: significant other and family Smoking Status: Current some day smoker alcohol intake: never Assessment & Plan Assessment & Plan narrative: 1. Left lower extremity cellulitis She is presently on vancomycin alone. She did receive ceftriaxone in the emergency department. This will be resumed. Her white blood cell count overall is improved at 17.2. 2. Severe leukocytosis Secondary to cellulitis. Improving as noted. 3. Hypokalemia Continue to replete 4. Hypocalcemia Improved. 5. Opiate use disorder She was placed on methadone 5 mg q.[address] Vazquez. She also has as needed IV morphine available. Presently, her pain appears to be well controlled. Code status Full Prophylaxis On Lovenox Disposition Possible discharge tomorrow if her cellulitis continues to improve Quality VTE Deep Vein Thrombosis/Pulmonary Embolism Present on Admission: No
[2023-09-08 19:36] VITALS: BP 117/60; PULSE 99; RESP 19; TEMP 36.8; O2SAT 97
[2023-09-08] MEDS: cefTRIAXone 1,000 MG in SODIUM CHLORIDE 0.9% 100 ML 200 MG IV (19:52)
[2023-09-08 23:00] VITALS: BP 110/62; PULSE 99; RESP 17; TEMP 36.6; O2SAT 96
[2023-09-09] MEDS: VANCOMYCIN 1,250 MG/250 ML PIGGYBACK 166.667 MG IV ×2 (04:18→13:51)
[2023-09-09 04:43] VITALS: BP 106/69; PULSE 96; RESP 21; TEMP 36.2; O2SAT 95
[2023-09-09 05:17] LABS: Add Manual Diff / Slide Review NO; Basophils Absolute Auto 100 /uL (0-100); Basophils Percent Auto 0.5 % (0-2); Eosinophils Absolute Auto 300 /uL (0-450); Eosinophils Percent Auto 1.8 % (2-4); Hematocrit 32.3 % (36-46); Lymphocytes Absolute Auto 2600 /uL (1100-4500); Lymphocytes Percent Auto 16.5 % (25-40); Mean Corpuscular HGB Conc 34.1 % (30-36); Mean Corpuscular Hemoglobin 28.1 PG (26-34); Mean Corpuscular Volume 82.4 fL (80-100); Monocytes Absolute Auto 1100 /uL (0-900); Monocytes Percent Auto 7.3 % (3-14); Neutrophils Absolute Auto 11600 /uL (1500-7000); Neutrophils Percent Auto 73.9 % (50-75); Platelet Count 523 X10^3/uL (150-400); Red Blood Cell Count 3.92 X10^6/uL (4.0-5.2); Red Cell Distribution Width 14.7 % (11.6-14.8); White Blood Cell Count 15.6 X10^3/uL (4.5-11.0)
[2023-09-09 05:31] LABS: Alanine Aminotransferase 17 IU/L (<35); Albumin Globulin Ratio 0.8 (1.0-2.8); Alkaline Phosphatase 125 U/L (38-126); Aspartate Aminotransferase 17 IU/L (14-36); Bilirubin Total 0.3 mg/dL (0.2-1.3); Blood Urea Nitrogen 3 mg/dL (7-17); Calcium 7.9 mg/dL (8.4-10.2); Carbon Dioxide 27 mmol/L (22-32); Chloride 108 mmol/L (98-107); Estimated Glomerular Filt Rate > 60 mL/min (>60); Globulin 3.6 g/dL (1.7-4.1); Glucose 111 mg/dL (70-100); HEMOLYSIS < 15 (0-50); Potassium 3.7 mmol/L (3.4-5.1); Sodium 138 mmol/L (137-145); Total Protein 6.6 g/dL (6.3-8.2)
[2023-09-09] MEDS: METHADONE 10 MG TABLET 5 MG PO ×2 (05:59→22:01)
[2023-09-09 08:00] VITALS: BP 122/67; PULSE 89; RESP 16; TEMP 36.3; O2SAT 98
[2023-09-09 08:34] VITALS: BP 122/67; PULSE 89
[2023-09-09] MEDS: cloNIDine 0.1 MG TABLET PO (08:34)
[2023-09-09] MEDS: MORPHINE 4 MG/ML INJ 3 MG IV (10:30)
--- NOTE | 2023-09-09 10:30 | CM.DPC ---
DCP Cont: Discussed patient during team rounds. Patient is continuing with IV ABO, did mention her inquiring about a walker, does not have current P.T. orders. Went ahead and placed P.T. orders per hospitalist. P: DCP to continue to follow. Plan is home when deemed medically stable. Patient goes to the Sub[facility] clinic at [facility]. Plan is for patient to discharge with a friend when medically stable. Breana Shanks RN/Otr [employer]
--- NOTE | 2023-09-09 11:18 | PT.IIE ---
Current Diagnoses Cellulitis of left lower limb (09/07/23) Physical Therapy Inpatient Evaluation/Re-Eval M1 PT/OT-IP Prior Functional Status Start: 09/09/23 10:47 Freq: NEEDED Status: Active Protocol: Document 09/09/23 10:47 MB (Rec: 09/09/23 11:17 MB [id number]) Medical Review Prior Functional Status Medical History Reviewed Yes Diet/Fluid Consistency Regular Communication WNLs Mobility and Gait I Activities of Daily Living and IADL's I Social History Household Members significant other,family Living Arrangements House Number of Floors (Floors) One Floor Number of Stairs To Enter/Railing? 3 steps with left rail ascend to enter Additional Social History Comment Pt has been living in one home and hopes to d/c to her significant other's home M2 PT-IP Current Condition Start: 09/09/23 10:47 Freq: NEEDED Status: Active Protocol: Document 09/09/23 10:47 MB (Rec: 09/09/23 11:17 MB [id number]) Physical Therapy Current Condition Current Condition Evaluation Date 09/09/23 Treatment Diagnosis LLE cellulitis, PT to see if pt needs RW to dispense for d/ c M3 PT-IP Subjective Start: 09/09/23 10:47 Freq: NEEDED Status: Active Protocol: Document 09/09/23 10:47 MB (Rec: 09/09/23 11:17 MB [id number]) Subjective Physical Therapy Visit Type Type Initial Evaluation Visit Start Time 10:47 Visit Stop Time 11:10 Number of OPERATIONS LEAD Visits 0 Physical Therapy Visit Comments Patient Comments Pt states that she is feeling better and her leg is getting a little better. Therapy Pain Assessment Pain When Pain Assessed At Rest Pain Present Pain Present Pain Reported Location left lower leg Intensity 4 Scale Used Numeric (0 - 10) Pain Management Techniques Re-positioning M4 PT-IP Mobility and Gait Start: 09/09/23 10:47 Freq: NEEDED Status: Active Protocol: Document 09/09/23 10:47 MB (Rec: 09/09/23 11:17 MB [id number]) PT-Bed Mobility Assessment Rolling Level of Assist Independent Supine to Sit Supine to Sit Independent Sit to Supine Sit to Supine Independent PT-Transfer Assessment Sit to and From Stand Sit to and from Stand Independent Equipment Transfer Assistive Device Gait Belt,Front Wheeled Walker Orthotic/Prosthetic Devices or Brace: No Transfer Ability Level of Assist Independent Comments Mobility Comments Pt is antalgic with transfer without AD and PT and pt decide that RW will be best option for her at this time Gait Assessment Gait Gait Assistance Required: Independent Distance (Feet) 100 Able to Maintain Weight Bearing Status Yes During Gait Assistive Devices Assistive Device Gait Belt,Front Wheeled Walker Orthotic/Prosthetic Devices or Brace: No Gait Deviations General Gait Pattern Antalgic,Decreased Stride Length,Step-to Gait,Wide Based Gait Factors Limiting Gait Function Factors Limiting Gait Function Decreased Strength,Pain Comments Gait Comments Pt gait trains over 100'x2 with RW and she has some LLE discomfort d/t cellulitis with gait but she states that pain is better when she is up walking compared to resting in the bed Stair Climbing Assessment Evaluation Level of Assist On Stairs Independent,Standby Assistance ,1 Person Assistance Devices Stair Climbing Assistive Devices Left Railing Technique/Endurance Stair Climbing Direction Ascend and Descend Stair Climbing Technique Step to Step Number of Steps Climbed 3 Query Text: Stair Climbing Set # Repetitions (reps) 1 Comments Stair Climbing Comments Pt facing left rail for ascend with both hands on it and step-to gait one step and then the next for ascend and similar pattern for descend with both hands on the same rail PT-Balance Assessment Sitting Balance and Reactions Static Sitting Balance Ability Normal Dynamic Sitting Balance Ability Normal Standing Balance and Reactions Static Standing Balance Ability Good Dynamic Standing Balance Ability Good Device Used RW M5 PT-IP Objective Assessments Start: 09/09/23 10:47 Freq: NEEDED Status: Active Protocol: Document 09/09/23 10:47 MB (Rec: 09/09/23 11:17 MB [id number]) Orientation Orientation/Cognition Level of Alertness Alert Orientation Name,Age,Birthday,Month,Date, Year,Day of Week,Place, Situation Language Function Ability No Deficits Noted Safety Awareness Understands Safety Issues Memory Description No Deficits Noted Gross Range of Motion Upper Extremity ROM Assessment Within Functional Limits Lower Extremity ROM Assessment Left Impaired Impairments LLE edema and discomfort Strength Lower Extremity Strength Assessment Left Impaired Comments Strength Comments LLE is functionally 3/5 and no MMT given edema, discomfort and cellulitis M6 PT-IP Treatment Start: 09/09/23 10:47 Freq: NEEDED Status: Active Protocol: Document 09/09/23 10:47 MB (Rec: 09/09/23 11:17 MB [id number]) Physical Therapy Treatment Education Education Provided Safety Brace Education Patient Other Treatments Other Treatment Performed Ed pt in use and benefits of RW, obtained order and walker for pt and left in pt room M7 PT-IP Assessment and Plan Start: 09/09/23 10:47 Freq: NEEDED Status: Active Protocol: Document 09/09/23 10:47 MB (Rec: 09/09/23 11:17 MB [id number]) PT Summary Assessment and Plan Potential Rehabilitation Potential Good Status of Condition at Evaluation Evolving Summary Impairments Gait,Activity Tolerance Progress Towards Goals Safe For Discharge Assessment Summary Pt is a pleasant 42 y/o female who reports that her LLE is feeling better. She has less pain when up walking compared to lying in bed. She con't with LLE edema and discomfort and so PT and pt agree that RW is best option for safe and most tolerable gait at this time. PT issued walker after obtaining order. Will d/c acute PT. Frequency of Treatment Frequency Of Treatment Discharge Weight Bearing Status Weight Bearing Status Weight Bear as Tolerated Recommendations To Nursing Amount of Assist Needed Standby Assistance Discharge Recommendations PT Discharge Recommendations Home with Assistance Transportation Needs at Discharge Private Vehicle
[2023-09-09] MEDS: cefTRIAXone 1,000 MG in SODIUM CHLORIDE 0.9% 100 ML 200 MG IV (11:34)
[2023-09-09 13:04] LABS: Vancomycin Trough 10.5 ug/mL (10-20)
[2023-09-09] MEDS: VANCOMYCIN TROUGH 1 REQUEST MISC (13:51)
[2023-09-09] MEDS: OXYCODONE IR 5 MG TABLET PO (13:52)
[2023-09-09 15:51] VITALS: BP 128/71; PULSE 83; RESP 20; TEMP 36.2; O2SAT 99
--- NOTE | 2023-09-09 18:38 | PM.PN.1 ---
Subjective Subjective Interval history: Patient's LLE cellulitis improving. She is requesting no more morphine as it made her sleepy last night. Po oxy ordered instead. Able to walk halls with PT today. Exam Vital Signs (past 8 hours): - 09/09/23 15:51 Temperature 97.1 F L Pulse Rate 83 Respiratory Rate 20 Blood Pressure 128/71 Pulse Oximetry 99 Oxygen Flow Rate 0 Oxygen Delivery Method Room Air Oxygen Flow Rate 0 Narrative Exam Narrative: GEN: Adult female, Alert and oriented x 3, NAD HEENT:NC, Face symmetric CHEST: Respiratory excursions symmetric, CTAB CV: RRR, no M/R/G ABD: Soft, NT/ND, BT present in all 4 quadrants, no organomegaly or masses EXTR: warm, well perfused, no C/C; left lower extremity there are small blisters on the proximal aspect of the lateral burdick as well as a drained blister to the posterior calf, leg is mildly warm there are some small wrinkles on the lateral calf which are consistent with reduced swelling, the leg overall is a dusky pink color and remains markedly swollen compared to the right leg but improved SKIN: warm and dry, no rash NEURO: Alert and oriented x 3, nonfocal Objective Labs 09/09/23 04:32 09/09/23 04:32 Labs: Laboratory Results - last 24 hr 09/09/23 09/09/23 04:32 12:30 WBC 15.6 H RBC 3.92 L Hgb 11.0 L Hct 32.3 L MCV 82.4 MCH 28.1 MCHC 34.1 RDW 14.7 Plt Count 523 H Neut % (Auto) 73.9 Lymph % (Auto) 16.5 L [place] % (Auto) 7.3 Eos % (Auto) 1.8 L Baso % (Auto) 0.5 Neut # (Auto) 49861 H Lymph # (Auto) 2600 [place] # (Auto) 1100 H Eos # (Auto) 300 Baso # (Auto) 100 Sodium 138 Potassium 3.7 Chloride 108 H Carbon Dioxide 27 BUN 3 L Creatinine 0.43 L Estimated GFR > 60 BUN/Creatinine Ratio 7.0 Glucose 111 H Calcium 7.9 L Total Bilirubin 0.3 AST 17 ALT 17 Alkaline Phosphatase 125 Total Protein 6.6 Albumin 3.0 L Globulin 3.6 Albumin/Globulin Ratio 0.8 L Vancomycin Trough 10.5 PFSH Social History household members: significant other and family Smoking Status: Current some day smoker alcohol intake: never Assessment & Plan Assessment & Plan narrative: 1. Left lower extremity cellulitis Continue rocephin and vanc. Her white blood cell count overall is downtrending and pain and swelling has improved. 2. Severe leukocytosis Secondary to cellulitis. Improving as noted. 3. Hypokalemia Continue to replete 4. Hypocalcemia Improved. 5. Opiate use disorder She was placed on methadone 5 mg q.[address] Vazquez. Po oxy PRN ordered. She is interested in suboxone at the [facility] clinic after discharge. Code status Full Prophylaxis On Lovenox Disposition Likely 1-2 more days. PT cleared for home. Quality VTE Deep Vein Thrombosis/Pulmonary Embolism Present on Admission: No
[2023-09-09] MEDS: VANCOMYCIN 1,500 MG/300 ML PIGGYBACK 200 MG IV (20:11)
[2023-09-09] MEDS: SODIUM CHLORIDE 0.9% FLUSH 10 ML IV ×2 (20:11→22:00)
[2023-09-09 22:00] VITALS: BP 114/60; PULSE 86; RESP 19; TEMP 35.8; O2SAT 98
--- NOTE | 2023-09-09 23:35 | PC.NURSE ---
Patient is alert and oriented. Breath sounds CTA with RA sat of 98%. HRR. Denied nausea. BT present and abdomen is soft; reports having had BM yesterday. Denied dysuria with urination. Has been independent with mobility; uses walker when out of bed. Left LE is edematous with a dull red color extending from knee to ankle and apprx 2 above knee medially. Has intact blistered area at top of reddened area and scabbed abrasion posterior lower calf. Leg is warm to touch but CMS is intact. Is keep leg elevated on pillows when in bed due to 2+ edema in foot and LE. Stated pain was 3/10 and tolerable and instructed to call when needing pain meds and she verbalized agreement. Declined use of SCD's so reminded to ankle wave. Fall risk score is moderate but is steady on feet and agreeable to calling for assist if needed so alarm is not activated.
[2023-09-10] MEDS: VANCOMYCIN 1,500 MG/300 ML PIGGYBACK 200 MG IV ×3 (04:11→20:09)
[2023-09-10] MEDS: SODIUM CHLORIDE 0.9% FLUSH 10 ML IV ×5 (04:12→22:00)
[2023-09-10 04:15] VITALS: BP 125/69; PULSE 100; RESP 16; TEMP 35.5; O2SAT 96
[2023-09-10] MEDS: OXYCODONE IR 5 MG TABLET PO ×4 (04:16→20:13)
[2023-09-10 05:07] LABS: Add Manual Diff / Slide Review NO; Basophils Absolute Auto 100 /uL (0-100); Basophils Percent Auto 0.8 % (0-2); Eosinophils Absolute Auto 500 /uL (0-450); Eosinophils Percent Auto 3.4 % (2-4); Hemoglobin 10.9 g/dL (12.0-16.0); Lymphocytes Absolute Auto 2800 /uL (1100-4500); Lymphocytes Percent Auto 18.6 % (25-40); Mean Corpuscular Hemoglobin 27.7 PG (26-34); Mean Corpuscular Volume 81.2 fL (80-100); Monocytes Absolute Auto 1100 /uL (0-900); Monocytes Percent Auto 7.5 % (3-14); Neutrophils Absolute Auto 10400 /uL (1500-7000); Neutrophils Percent Auto 69.7 % (50-75); Platelet Count 637 X10^3/uL (150-400); Red Blood Cell Count 3.94 X10^6/uL (4.0-5.2); Red Cell Distribution Width 14.8 % (11.6-14.8)
[2023-09-10 05:20] LABS: BUN Creatinine Ratio 15.1 (6-22); Blood Urea Nitrogen 8 mg/dL (7-17); Carbon Dioxide 26 mmol/L (22-32); Chloride 105 mmol/L (98-107); Estimated Glomerular Filt Rate > 60 mL/min (>60); Glucose 127 mg/dL (70-100); HEMOLYSIS < 15 (0-50); Potassium 3.5 mmol/L (3.4-5.1); Sodium 136 mmol/L (137-145)
[2023-09-10 05:37] LABS: Magnesium 1.9 mg/dL (1.6-2.3)
[2023-09-10] MEDS: METHADONE 10 MG TABLET 5 MG PO ×3 (05:38→22:00)
[2023-09-10 09:23] VITALS: BP 120/66; PULSE 94
[2023-09-10] MEDS: ENOXAPARIN 40 MG/0.4 ML SYRINGE SUBCUT (09:23)
[2023-09-10] MEDS: POTASSIUM CHLORIDE 20 MEQ TAB 40 MEQ PO ×2 (09:23→12:24)
[2023-09-10] MEDS: cloNIDine 0.1 MG TABLET PO (09:23)
--- NOTE | 2023-09-10 11:18 | PM.PN.1 ---
Subjective Subjective Interval history: Improving, the left leg is shearing machine tender and red as well as swollen. No chest pain, shortness on breath. Exam Vital Signs (past 8 hours): - 09/10/23 04:15 09/10/23 09:00 09/10/23 09:23 Temperature 96 F L Pulse Rate 100 H 94 H Respiratory Rate 16 Blood Pressure 125/69 120/66 Pulse Oximetry 96 Oxygen Delivery Method Room Air Oxygen Flow Rate 0 Oxygen Delivery Method Room Air Oxygen Flow Rate 0 Narrative Exam Narrative: No acute distress, fluent speech. Her lungs are clear, normal effort. Her heart is regular, no murmur. Lungs are clear with normal effort. Abdomen is non distended. Left leg is still red and swollen, but improving. Objective Labs 09/10/23 04:31 09/10/23 04:31 Labs: Laboratory Results - last 24 hr 09/09/23 09/10/23 12:30 04:31 WBC 15.0 H RBC 3.94 L Hgb 10.9 L Hct 32.0 L MCV 81.2 MCH 27.7 MCHC 34.0 RDW 14.8 Plt Count 637 H Neut % (Auto) 69.7 Lymph % (Auto) 18.[address] [place] % (Auto) 7.5 Eos % (Auto) 3.4 Baso % (Auto) 0.8 Neut # (Auto) 08929 H Lymph # (Auto) [address] [place] # (Auto) 1100 H Eos # (Auto) 500 H Baso # (Auto) 100 Sodium 136 L Potassium 3.5 Chloride 105 Carbon Dioxide 26 BUN 8 Creatinine 0.53 Estimated GFR > 60 BUN/Creatinine Ratio 15.1 Glucose 127 H Calcium 8.0 L Magnesium 1.9 Vancomycin Trough 10.5 PFSH Social History household members: significant other and family Smoking Status: Current some day smoker alcohol intake: never Assessment & Plan Assessment & Plan narrative: 1. Left lower extremity cellulitispresent on admission and improving. -Continue rocephin and vanc. Her white blood cell count overall is 15k today. She still has significant redness, warmth and swelling would benefit from an additional night of IV antibiotics. 2. Severe leukocytosis, present on admission and improving. Secondary to cellulitis. Improving as noted. 3. Hypokalemiapresent on admission and improving. Continue to replete 4. Hypocalcemia, present on admission and improving. Improved. Replete. 5. Opiate use disorder and dependence, stable. She was placed on methadone 5 mg q.[address] Vazquez. PO oxycodone PRN ordered. She is interested in suboxone at the [facility] clinic after discharge. Code status Full Prophylaxis On Lovenox Disposition Likely 1 more day. (PT cleared for home). Quality VTE Deep Vein Thrombosis/Pulmonary Embolism Present on Admission: No
[2023-09-10] MEDS: SODIUM CHLORIDE 0.9% 250 ML 21 ML IV (11:30)
[2023-09-10 12:00] VITALS: BP 120/67; PULSE 84; RESP 20; TEMP 36.1; O2SAT 99
[2023-09-10] MEDS: cefTRIAXone 1,000 MG in SODIUM CHLORIDE 0.9% 100 ML 200 MG IV (12:08)
[2023-09-10] MEDS: CALCIUM CARBONATE 500 MG TAB 1000 MG PO (12:23)
--- NOTE | 2023-09-10 13:42 | CM.DPNOTE ---
DCP Note PRINCIPAL MILITARY ANALYST reviewed EMR. Per PN, anticipate dc tomorrow. one more day of IV abx. dc tomorrow with PO abx Plan; anticipate ride home with friend tomorrow. Pt to reenroll in suboxone clinic with [facility]. No additional CM needs. CM team will follow as needed POPPY Druan
[2023-09-10 18:00] VITALS: BP 122/64; PULSE 88; RESP 20; TEMP 36.7; O2SAT 98
[2023-09-10 20:00] VITALS: BP 126/69; PULSE 88; RESP 17; TEMP 36.1; O2SAT 100
[2023-09-10] MEDS: VANCOMYCIN TROUGH 1 REQUEST MISC (20:09)
[2023-09-10 20:55] LABS: Vancomycin Trough 13.8 ug/mL (10-20)
--- NOTE | 2023-09-10 23:00 | PC.NURSE ---
Patient is alert and oriented; affect is flat and reports feeling fidgety. Breath sounds CTA with RA sat of 100%. HRR. Denied nausea. BT hypoactive but had large BM this shift. Denied dysuria with urination. Is independent with bed mobility and is getting up in room with walker independently. Does have pain in left LE so was medicated earlier with oxycodone and was asleep when reassessed. Left LE remains edematous but not has lessened since last night; still red from ankle to knee with intact blisters distal to knee and abrasion to left lateral calf. Declines use of SCD's so reminded to ankle wave when awake. Fall risk score is moderate and verbalizes understanding to call for assist prn.
[2023-09-11] MEDS: ACETAMINOPHEN 325 MG TABLET 650 MG PO (00:16)
[2023-09-11] MEDS: OXYCODONE IR 5 MG TABLET PO ×2 (00:17→08:32)
[2023-09-11 02:00] VITALS: BP 119/70; PULSE 63; RESP 16; TEMP 36.2; O2SAT 100
[2023-09-11] MEDS: VANCOMYCIN 1,500 MG/300 ML PIGGYBACK 200 MG IV (04:18)
[2023-09-11] MEDS: SODIUM CHLORIDE 0.9% FLUSH 10 ML IV ×3 (04:19→08:33)
[2023-09-11 05:03] LABS: Add Manual Diff / Slide Review NO; Basophils Absolute Auto 100 /uL (0-100); Eosinophils Percent Auto 1.7 % (2-4); Hemoglobin 11.1 g/dL (12.0-16.0); Lymphocytes Absolute Auto 2500 /uL (1100-4500); Monocytes Absolute Auto 800 /uL (0-900); Red Blood Cell Count 4.08 X10^6/uL (4.0-5.2)
[2023-09-11 05:18] LABS: BUN Creatinine Ratio 9.1 (6-22); Blood Urea Nitrogen 4 mg/dL (7-17); Calcium 8.8 mg/dL (8.4-10.2); Carbon Dioxide 29 mmol/L (22-32); Chloride 108 mmol/L (98-107); Estimated Glomerular Filt Rate > 60 mL/min (>60); Glucose 107 mg/dL (70-100); HEMOLYSIS < 15 (0-50); Magnesium 2.2 mg/dL (1.6-2.3); Potassium 3.7 mmol/L (3.4-5.1); Sodium 139 mmol/L (137-145)
[2023-09-11 05:24] LABS: Basophils Percent Auto 0.5 % (0-2); Eosinophils Absolute Auto 200 /uL (0-450); Hematocrit 33.1 % (36-46); Lymphocytes Percent Auto 16.5 % (25-40); Mean Corpuscular HGB Conc 33.6 % (30-36); Mean Corpuscular Hemoglobin 27.2 PG (26-34); Mean Corpuscular Volume 81.1 fL (80-100); Monocytes Percent Auto 5.2 % (3-14); Neutrophils Absolute Auto 11400 /uL (1500-7000); Neutrophils Percent Auto 76.1 % (50-75); Platelet Count 727 X10^3/uL (150-400); Red Cell Distribution Width 14.7 % (11.6-14.8); White Blood Cell Count 14.9 X10^3/uL (4.5-11.0)
[2023-09-11] MEDS: METHADONE 10 MG TABLET 5 MG PO (06:01)
[2023-09-11 08:33] VITALS: BP 116/62; PULSE 76
[2023-09-11] MEDS: cloNIDine 0.1 MG TABLET PO (08:33)
[2023-09-11 08:42] VITALS: BP 116/62; PULSE 76; RESP 15; TEMP 35.8; O2SAT 97
--- NOTE | 2023-09-11 10:35 | CM.DPNOTE ---
DCP Note BROADCAST CHIEF ENGINEER reviewed EMR. Per hospitalist in morning rounds, dc today home on PO abx. BROADCAST CHIEF ENGINEER entered room and introduced self and role. Pt eager to dc. Reports friend can come get her. Reports will start up with [facility] suboxone clinic. Denies other drug use resources. Denies other CM needs. Plan: home tody with friend on PO abx. Denies other CM needs. CM team will follow as needed. POPPY Duran
--- NOTE | 2023-09-11 10:37 | P.DS_ITS ---
History of Present Illness History of Present Illness Chief complaint: spider bite left leg swollen Narrative: From night doctor: 42 year old female with apparent no medical issues and not seen a physician and currently not on prescription medications but on Percocet that is being procured without a prescription presents to the emergency room for worsening pain redness and swelling of the left lower extremity that started about 5 to 6 days ago. Reports that she may have felt bite-like sensation but could not find any insects while at home and rested off few days ago. Started off as a small red blister in the calf on the left leg that spread to the leg up to the knee and to the ankle. No recent trauma and does not work outside/inadvertent exposure or scrapes to the skin. No pets at home. Does have eczema and may also have scratched her legs unknowingly. Now developed significant pain with erythema extending to most of the leg on the left side. Noted to be tachycardic in the emergency room and labs revealed a white count of 29.2. Hemoglobin of 13.9, potassium of 6.0 with a creatinine of 1.39. Patient was initiated on IV Rocephin/vancomycin for likely cellulitis of the left lower extremity and admitted for further evaluation Additional history: Symptoms began last Sunday. She has had intermittent vomiting with leg swelling, pain and redness. She has also had some degree of fevers. She wondered about a bug bite as she had some kind of pinch but did not see anything in particular. She denies any other trauma to the leg. She has no history of leg cellulitis or MRSA. The right leg is unremarkable and she has no history of edema. She does have opiate dependency using Percocet 30 mg tabs 10-12 a day. She had previously been on a maintenance program but is currently not. She denies any injection drug use. She denies current symptoms withdrawal as she was given some opiates in the emergency department. Discharge Providers Provider Date of admission: 09/07/23 02:55 Discharge Date: 09/11/23 Primary care physician: Phoebe Herman PA-C Consults: 09/09/23 10:25 Consult to Physical Therapy Evaluate & Treat Comment: Physician Instructions: Evaluate and Treat 09/09/23 11:02 Consult to Home Health Routine Comment: Reason For Exam: FWW for home use Discharge provider: Rakesh Vazquez MD Summary Hospital Course Discharge Diagnosis: 1. Left lower extremity cellulitispresent on admission and improving. -treated with Rocephin and vancomycin. Her white blood cell count overall is 15kand improved. 2. Severe leukocytosis, present on admission and improving. -Secondary to cellulitis. Improving as noted. 3. Hypokalemiapresent on admission and improved. -Continue to replete 4. Hypocalcemia, present on admission and improved. -Improved. Replete. 5. Opiate use disorder and dependence, stable. -She was placed on methadone 5 mg q.[address] Vazquez. PO oxycodone PRN ordered. Hospital Course: She was admitted with leg cellulitis and severe leukocytosis. She was treated with IV antibiotics and had negative blood cultures and slow improvement of leg and leukocytosis. She was much improved and stable for discharge on 09/10. She was given methadone 5 TID while in the hospital. She is considering re-entering a maintenance program (Suboxone) but is not currently ready to. Status at Discharge Cognitive/behavioral status at discharge: oriented Functional status at discharge: independent ambulation Overall status at discharge: patient is back to baseline Time Spent with Patient Time spent: Greater than 30 minutes Exam Vital Signs (past 8 hours): - 09/11/23 08:33 09/11/23 08:42 Temperature 96.5 F L Pulse Rate 76 76 Respiratory Rate 15 Blood Pressure 116/62 116/62 Pulse Oximetry 97 Oxygen Flow Rate 0 Oxygen Delivery Method Room Air Oxygen Flow Rate 0 Narrative Exam Narrative: NAD, alert and oriented. Fluent speech. Lungs are clear, normal rate and effort. Heart is regular, no murmur gallop or rub. Abdomen is soft, non distended. Extremities are free of edema. Leg is much better, less red. Objective Imaging Multiple studies:: Radiologist's impression: Chest x-ray: Radiologist's impression: No acute findings. Leg x ray: Radiologist's impression: Nonspecific soft tissue edema. No acute osseous abnormality. If there is continued clinical concern or persistent symptoms, repeat radiographs or cross-sectional imaging (e.g. CT, MRI) may be helpful for further evaluation. Venous US: Radiologist's impression: No findings of deep venous thrombosis in either lower extremity. Labs 09/11/23 04:29 09/11/23 04:29 Labs: Laboratory Results - last 24 hr 09/10/23 09/11/23 20:05 04:29 WBC 14.9 H RBC 4.08 Hgb 11.1 L Hct 33.1 L MCV 81.1 MCH 27.2 MCHC 33.6 RDW 14.7 Plt Count 727 H Neut % (Auto) 76.1 H Lymph % (Auto) 16.5 L [place] % (Auto) 5.2 Eos % (Auto) 1.7 L Baso % (Auto) 0.5 Neut # (Auto) 06608 H Lymph # (Auto) 2500 [place] # (Auto) 800 Eos # (Auto) 200 Baso # (Auto) 100 Sodium 139 Potassium 3.7 Chloride 108 H Carbon Dioxide 29 BUN 4 L Creatinine 0.44 L Estimated GFR > 60 BUN/Creatinine Ratio 9.1 Glucose 107 H Calcium 8.8 Magnesium 2.2 Vancomycin Trough 13.8 PFSH Social History household members: significant other and family Smoking Status: Current some day smoker alcohol intake: never Discharge Assessment & Plan Assessment and Plan Assessment: 1. Left lower extremity cellulitis, present on admission and improving. -treated with Rocephin and vancomycin. 2. Severe leukocytosis, present on admission and improving. -Improving as noted. 3. Hypokalemiapresent on admission and improved. -repleted. 4. Hypocalcemia, present on admission and improved. -repleted. 5. Opiate use disorder and dependence, stable. -She was placed on methadone 5 mg q.8 hours while in the hospital. Plan of Treatment: Discharge home with an additional 7 days of Amoxicillin and Doxycycline (severe cellulitis). PCP follwo up within 6 days. Discharge Plan Discharge Plan Patient Disposition: Home Provider Discharge Comment: Stable for discharge after several days of IV antibiotics. She will continue on oral antibiotics for an additional 7 days in is advised to elevate her leg and seek follow up with primary care within the next 5-6 days. Discharge orders & Medications Prescriptions: New amoxicillin 500 mg capsule 500 mg PO TID Qty: 21 0RF doxycycline hyclate 100 mg capsule 100 mg PO BID Qty: 7 0RF Follow up/Referrals: Phoebe Herman PA-C [Primary Care Provider] - Discharge Health Status Multidrug resistant organism: No MDRO Diet/Activity/Treatments Diet: Diet as Tolerated Skin/Wound/Dressing Care Report to your healthcare provider any signs of infection, such as:: chills, fever, increased pain and unusual drainage Visit Report/Discharge Packet Instructions: DI for Cellulitis -- Adult Stand Alone Forms: Patient Portal/API Discharge Data Primary Care Provider: Phoebe Herman VTE Deep Vein Thrombosis/Pulmonary Embolism Present on Admission: No
== END 2023-09-11 12:15 | disposition home or self-care (01) | DRG 603 ==
LOC: ED 09-07 00:37 → AC 09-07 02:55
PROVIDERS: Family Medicine; Hospitalist; Student in an Organized Health Care Education/Training Program; Admitting Provider Internal Medicine; Emergency Provider Emergency Medicine; Family Provider Physician Assistant; PCP Physician Assistant; Referring Provider Emergency Medicine; Visit Provider Internal Medicine
DX: L03.116 Cellulitis of left lower limb (principal); F11.20 Opioid dependence, uncomplicated; E87.6 Hypokalemia; F15.90 Other stimulant use, unspecified, uncomplicated; E83.51 Hypocalcemia; F17.210 Nicotine dependence, cigarettes, uncomplicated; Z23 Encounter for immunization
CPT/HCPCS: 36415; 71045; 73590; 80048; 80053; 80202; 81003; 81025; 83036; 83605; 83690; 83735; 84145; 85007; 85025; 85610; 85730; 87040; 90471; 93970; 96365; 96367; 97116; 97161; 99284; 99285; 90715; J0612; J0696; J1642; J1650; J2270